=== PATIENT | male | born 1965 | race Caucasian/White ===

== ENCOUNTER 2018-07-10 08:23 | Day surgery (SDC) | payer BC ==
[2018-07-10 09:06] VITALS: BMI 24.9
[2018-07-10] MEDS ORDERED: LIDOCAINE 1%/EPI 1:100000 (20 ML MULTI DOSE VIAL) ONE (09:10)
[2018-07-10] MEDS ORDERED: TETRACAINE 0.5% OPHTH SOLN 2 ML BOTTLE ONE (09:18)
[2018-07-10] MEDS ORDERED: POVIDONE-IODINE 5% OPHTHALMIC PREP 30 ML SOLUTION ONE (09:21)
[2018-07-10] MEDS ORDERED: MIDAZOLAM HCL 2 MG/2 ML SINGLE DOSE VIAL ONE (09:32)
[2018-07-10] MEDS ORDERED: ONDANSETRON 4 MG/2 ML VIAL ONE (09:49)
[2018-07-10] MEDS ORDERED: KETOROLAC TROMETHAMINE 30 MG/1 ML VIAL ONE (09:49)
[2018-07-10] MEDS ORDERED: LIDOCAINE HCL/PF 2% SDV 5ML VIAL ONE (09:49)
[2018-07-10] MEDS ORDERED: DEXAMETHASONE SOD PHOSPHATE 4 MG/1 ML VIAL ONE (09:49)
[2018-07-10] MEDS ORDERED: LIDOCAINE HCL 2% JELLY (5 ML/TUBE) ONE (09:49)
[2018-07-10] MEDS ORDERED: ceFAZolin SODIUM 1 GM VIAL ONE (09:49)
[2018-07-10] MEDS ORDERED: ePHEDrine SULFATE 50 MG/1 ML AMPULE ONE (10:13)
[2018-07-10] MEDS ORDERED: PROMETHAZINE HCL 25 MG/1 ML VIAL IVPUSH PRN (11:19)
[2018-07-10] MEDS ORDERED: ONDANSETRON 4 MG/2 ML VIAL IVPUSH PRN (11:19)
[2018-07-10] MEDS ORDERED: oxyCODONE HCL 5 MG TABLET PO PRN ×2 (11:19)
--- NOTE | 2018-07-10 11:47 | OP ---
DATE OF OPERATION: 07/10/2018 PREOPERATIVE DIAGNOSIS: Basal cell right upper lid status post Mohs. POSTOPERATIVE DIAGNOSIS: Basal cell right upper lid status post Mohs. PROCEDURE: 1. Initially skin muscle with advancement flap right upper lid. 2. Full-thickness wedge resection right upper lid. 3. Lateral canthotomy and secondary closure defect right upper lid with right lateral canthoplasty. SURGEON: Traci Mars MD ANESTHESIA: LMA. COMPLICATIONS: None. ESTIMATED BLOOD LOSS: 5 mL. OPERATIVE REPORT: The patient was brought to the operating room and placed on the operating room table. The wound was photographed. Attempts were performed to repair this in minimalist fashion without excessive manipulation. The wound was minimally debrided, and the skin muscle flap was developed in the lateral right upper lid above the defect where the tarsal plate had been thinned but was still intact . There was a slight divot in the tarsal plate. Skin muscle flap was advised and meticulously sewn in with interrupted 6-0 plain suture and chromic suture reconstructing the margin, and it looked acceptable in closed position, but when the eyelid was open, the tarsus buckled, and an irregular contour and lateral notch was visible, which might have affected tear flow. Therefore, the skin muscle flap was released. Full-thickness wedge resection was taken out of the lateral eyelid and marked on its medial edge with a 6-0 nylon suture. This was submitted for pathologic study. In order to allow easy closure, a lateral canthotomy was performed releasing the superior libia of lateral canthal tendon advancing the lateral remnant nasally, and the wound was then closed with 3 interrupted 6-0 silk sutures, one for the anterior lash line, one for the posterior mucocutaneous junction, and a vertical mattress suture at the great line creating a central pucker. These were tied and then looped inferiorly and secured and hemostat. The tarsus was repaired with partial-thickness 6-0 Vicryl sutures, 2 or 3 of these. The muscle layer was then closed with a muscle layer of 6-0 chromic, and the skin was closed with interrupted 6-0 plain suture with plastic technique. The lateral canthus was now reformed with a buried 5-0 chromic through the advanced portion of the upper lid and the end of the lower lid in a buried fashion recreating a new lateral canthus measuring approximately 30-31 mm on contralateral side. Lateral to this, the skin was closed with interrupted 6-0 plain sutures. Erythromycin was placed in the eye and on the sutures, and the patient was taken to the recovery room in stable condition. TRACI MARS M.D. NATALIE/[id number]
[2018-07-10 12:02] VITALS: TEMP 98.1
[2018-07-10 12:35] VITALS: BP 107/65; PULSE 72
--- NOTE | 2018-07-13 13:34 | PATH ---
Surgical Pathology Report Patient Name: CHAPARRO KANG Med. Rec. #: [id number] /Age/Gender: 1965 (Age: 53) / M Account: [id number] Location: [facility] AMBULATORY Taken: 07/10/2018 Received: 07/10/2018 Reported: 07/13/2018 Physicians: Del Jacobo Specimen(s) Received FULL THICKNESS WEDGE RESECTION RIGHT UPPER EYELID Clinical History Basal cell cancer right upper eyelid Final Diagnosis UPPER EYELID, RIGHT, WEDGE RESECTION: UPPER EYELID SKIN, UNDERLYING SUBCUTANEOUS TISSUE, AND SKELETAL MUSCLE WITH SUPERFICIAL MILD CHRONIC INFLAMMATION, FOCAL HEMOSIDERIN DEPOSITION AND FIBROSIS. CONJUNCTIVAL MUCOSA WITH MILD ACUTE INFLAMMATION. NO CARCINOMA IDENTIFIED. Comment: Deeper levels have been examined. Case seen interdepartmentally. Prior pathology report from [email or web address] ([id number]) noted. Electronically Signed Shana Buchanan M.D. Gross Description Received in formalin labeled "full thickness wedge resection right upper eyelid," is a 0.5 x 0.4 cm plascencia skin shave. There is a suture marking the medial edge of the specimen, per the surgeon. The epidermal surface displays a 0.4 x 0.3 cm plascencia, raised lesion. The base is inked blue and the specimen is trisected. Separately received within the same container is a 0.5 x 0.4 cm unoriented skin shave. The base is inked blue and the specimen is bisected. The specimen is entirely submitted in 4 cassettes as follows: 1-medial edge (with suture); 2-central portion of specimen; 3-lateral edge; 4-bisected separately received skin shave. /07/11/2018 saudi07/11/2018
== END 2018-07-10 12:40 | disposition home or self-care (01) ==
LOC: FASU 08:23
PROVIDERS: ATTEND Ophthalmology
PROC: 08BN0ZZ Excision of Right Upper Eyelid, Open Approach (ICD-10-PCS; principal; 2018-07-10 09:58)
DX: C44.1121 Basal cell carcinoma of skin of right upper eyelid, including canthus (principal)
CPT/HCPCS: 88307-TC; 94760